=== PATIENT | female | born 1990 | race Caucasian/White ===

== ENCOUNTER 2017-03-05 09:42 | Inpatient (IN) | payer OTHER ==
[2017-03-05 10:44] LABS: ROM Internal QC QC Line Present
[2017-03-05] MEDS ORDERED: Dinoprostone* 10 MG VAG.SUPP VAGINAL ONE (12:04)
[2017-03-05 14:10] LABS: Hematocrit 36 % (35-47); Hemoglobin 11.5 g/dl (12.0-16.0); Mean Corpuscular HGB Conc 32 g/dl (31-36); Mean Corpuscular Hemoglobin 27 pg (27-31); Mean Corpuscular Volume 85 fL (80-97); Mean Platelet Volume 9 um3 (7.4-10.4); Red Blood Count 4.24 10^6/ul (4.0-5.4); Red Cell Distribution Width 15 % (10.5-15); White Blood Count 13.1 10^3/ul (3.5-10.8)
[2017-03-05] MEDS ORDERED: Oxytocin in LR* 20 UNITS/1,000 ML BAG IVPB ONE (19:33)
[2017-03-05] MEDS ORDERED: Oxytocin in LR* 20 UNITS/1,000 ML BAG IVPB SCH (20:00)
[2017-03-06] MEDS ORDERED: OBEPIDURAL* 250 ML ONE (00:06)
[2017-03-06] MEDS ORDERED: Sodium Citrate/Citric Acid* 15 ML UDC PO PRN (00:38)
[2017-03-06] MEDS ORDERED: Phenylephrine IV* 40 MCG/ML 10 ML SYRINGE IV PUSH PRN ×2 (00:38)
[2017-03-06] MEDS ORDERED: OBEPIDURAL* 250 ML EPIDURAL SCH (01:00)
[2017-03-06] MEDS ORDERED: Dibucaine 1% 28.35 GM TUBE ONE (05:06)
[2017-03-06] MEDS ORDERED: Witch Hazel PAD* JAR TOPICAL PRN (07:07)
[2017-03-06] MEDS ORDERED: Acetaminophen TAB* 325 MG PO PRN (07:07)
[2017-03-06] MEDS ORDERED: Dibucaine 1% 28.35 GM TUBE PR PRN (07:07)
[2017-03-06] MEDS ORDERED: Glycerin ADULT SUPP PR PRN (07:07)
[2017-03-06] MEDS ORDERED: Simethicone CHEW TAB* 80 MG PO SCH (08:30)
[2017-03-06] MEDS: Docusate CAP* 100 MG PO SCH ×3 (10:12→20:59)
[2017-03-06] MEDS: Buprenorphine TAB* 8 MG PO SCH (10:39)
[2017-03-06] MEDS: Ibuprofen TAB* 600 MG PO PRN ×2 (15:48→22:03)
[2017-03-07] MEDS: Ibuprofen TAB* 600 MG PO PRN ×3 (06:24→20:56)
[2017-03-07 07:28] LABS: Hematocrit 35 % (35-47); Hemoglobin 11.4 g/dl (12.0-16.0); Mean Corpuscular HGB Conc 32 g/dl (31-36); Mean Corpuscular Hemoglobin 28 pg (27-31); Mean Corpuscular Volume 85 fL (80-97); Mean Platelet Volume 9 um3 (7.4-10.4); Red Blood Count 4.13 10^6/ul (4.0-5.4); Red Cell Distribution Width 15 % (10.5-15)
[2017-03-07] MEDS ORDERED: Ferrous Gluconate TAB* 324 MG TAB PO SCH (09:00)
[2017-03-07] MEDS: Buprenorphine TAB* 8 MG PO SCH (09:23)
[2017-03-07] MEDS: Docusate CAP* 100 MG PO SCH ×3 (09:23→20:57)
[2017-03-08] MEDS: Ibuprofen TAB* 600 MG PO PRN ×2 (08:12→15:36)
[2017-03-08] MEDS: Docusate CAP* 100 MG PO SCH ×2 (08:12→15:36)
[2017-03-08] MEDS: Buprenorphine TAB* 8 MG PO SCH (08:13)
[2017-03-08 08:30] VITALS: BP 109/61
== END 2017-03-08 18:30 | disposition home or self-care (01) | DRG 560 ==
LOC: MCHOBOUT 09:42 → MCHOB 09:49 → MCHOBOUT 11:12 → MCHOB 03-06 09:37
PROVIDERS: ADMIT Obstetrics & Gynecology; ATTEND Obstetrics & Gynecology
PROC: 10E0XZZ Delivery of Products of Conception, External Approach (ICD-10-PCS; principal; 2017-03-06)
DX: O48.0 Post-term pregnancy (principal); F11.21 Opioid dependence, in remission; Z3A.41 41 weeks gestation of pregnancy; Z37.0 Single live birth
CPT/HCPCS: 36415; 84112; 85025; 86850; 86900; 86901; A9270-GY

== ENCOUNTER 2019-01-12 22:35 | Observation (INO) | payer OTHER ==
[2019-01-12 23:14] LABS: ABS Basophils 0.1 10^3/ul (0-0.2); ABS Eosinophils 0.1 10^3/ul (0-0.6); ABS Lymphocytes 2.8 10^3/ul (1.0-4.8); ABS Monocytes 0.7 10^3/ul (0-0.8); ABS Neutrophils 6.3 10^3/ul (1.5-7.7); ABS Nucleated RBC 0 10^3/ul; Eosinophil % 0.8 %; Hematocrit 32 % (33-41); Hemoglobin 10.3 g/dL (12.0-16.0); Lymphocyte % 27.9 %; Mean Corpuscular HGB Conc 33 g/dL (31-36); Mean Corpuscular Hemoglobin 27 pg (27-31); Mean Corpuscular Volume 84 fL (80-97); Mean Platelet Volume 6.9 fL (7.4-10.4); Nucleated Red Blood Cells % 0; Platelet Count 317 10^3/uL (150-450); Red Blood Count 3.77 10^6 /uL (3.70-4.87); Red Cell Distribution Width 15 % (10.5-15); White Blood Count 9.9 10^3/uL (3.5-10.8)
[2019-01-12 23:30] LABS: Albumin 4.2 g/dL (3.2-5.2); Albumin/Globulin Ratio 1.8 (1-3); C Reactive Protein 5.17 mg/L (<8.01); Calcium 8.7 mg/dL (8.6-10.3); EGFR African American 141.3 (>60); EGFR Non-African American 116.8 (>60); Globulin 2.4 g/dL (2-4); Potassium 3.5 mmol/L (3.5-5.0); Total Bilirubin 0.2 mg/dL (0.2-1.0); Total Protein 6.6 g/dL (6.4-8.9)
[2019-01-13] MEDS ORDERED: NS 0.9% 1000 ML** 1,000 ML IV ONE (01:07)
--- NOTE | 2019-01-13 01:24 | ED ---
- HPI Summary HPI Summary: 28 year old female presents with vaginal bleeding today for the past 3 hours. She had confirmed intrauterine 2 weeks ago at [facility] and was given a pill for medical and then suppositories for the next 5 days. She states that she had some bleeding after taking the medications and passed some clots so thought that the miscarriage was over. [facility] she is suppose to follow [facility] on monday. She states she had no bleeding in between for the past week and a half. She had no pain until today. She states she is going to through three pairs of pants. She states she is very dizzy when she stands up. she admits to palpitations. She states the bleeding has not slowed. she states she is having cramping lower abdominal pain. - History of Current Complaint Chief Complaint: EDVaginalBleeding Stated Complaint: IM BLEEDING REALLY BAD PER PT Time Seen by Provider: 01/13/19 01:07 Pain Intensity: 2 - Assessment SAB: 0 IEA: 2 - Additional Pertinent History Maternal Blood Type and Rh: O Positive - Allergies/Home Medications Allergies/Adverse Reactions: Allergies Allergy/AdvReac Type Severity Reaction Status Date / Time No Known Allergies Allergy Verified 06/23/16 21:11 PMH/Surg Hx/FS Hx/Imm Hx Endocrine/Hematology History: Denies: Hx Anticoagulant Therapy Respiratory History: Denies: Hx Asthma Infectious Disease History: No Infectious Disease History: Denies: Traveled Outside the [place] in Last 30 Days - Family History Known Family History: Positive: Diabetes - Social History Alcohol Use: None Substance Use Type: Reports: None Substance Use Comment - Amount & Last Used: Hx of heroin use, 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 Active with [facility]. Hx Tobacco Use: Yes Smoking Status (MU): Current Every Day Smoker Type: Cigarettes Amount Used/How Often: 1/2 pack daily Review of Systems Negative: Fever Negative: Chest Pain Negative: Shortness Of Breath Positive: Other - vaginal bleeding All Other Systems Reviewed And Are Negative: Yes Physical Exam - Physical Exam Triage Information Reviewed: Yes Vital Signs Reviewed: Yes Appearance: Positive: Well-Appearing Skin: Positive: Warm, Dry Head/Face: Positive: Normal Head/Face Inspection Eyes: Positive: Normal, Conjunctiva Clear ENT: Positive: Pharynx normal Respiratory/Lung Sounds: Positive: Clear to Auscultation, Breath Sounds Present Cardiovascular: Positive: Normal, RRR Abdomen Description: Positive: Soft, Other: - tenderness pelvic area Bowel Sounds: Positive: Present Pelvic Exam: Blood - clots and active bleeding, Other - cervical os open Musculoskeletal: Positive: Normal Neurological: Positive: Normal Psychiatric: Positive: Normal Diagnostics - Vital Signs Vital Signs Temp Pulse Resp BP Pulse Ox 01/13/19 01:08 105 17 127/71 100 01/13/19 01:00 102 100 01/13/19 00:38 95 143/83 100 01/13/19 00:37 93 100 01/12/19 22:36 98.1 F 113 18 131/84 99 - Laboratory Lab Results: Lab Results 01/12/19 01/12/19 01/12/19 Range/Units 23:04 23:04 23:04 WBC 9.9 (3.5-10.8) 10^3/uL RBC 3.77 (3.70-4.87) 10^6 /uL Hgb 10.3 L (12.0-16.0) g/dL Hct 32 L (33-41) % MCV 84 (80-97) fL MCH 27 (27-31) pg MCHC 33 (31-36) g/dL RDW 15 (10.5-15) % Plt Count 317 (150-450) 10^3/uL MPV 6.9 L (7.4-10.4) fL Neut % (Auto) 63.5 % Lymph % (Auto) 27.9 % Amador % (Auto) 7.2 % Eos % (Auto) 0.8 % Baso % (Auto) 0.6 % Absolute Neuts (auto) 6.3 (1.5-7.7) 10^3/ul Absolute Lymphs (auto) 2.8 (1.0-4.8) 10^3/ul Absolute Monos (auto) 0.7 (0-0.8) 10^3/ul Absolute Eos (auto) 0.1 (0-0.6) 10^3/ul Absolute Basos (auto) 0.1 (0-0.2) 10^3/ul Absolute Nucleated RBC 0 10^3/ul Nucleated RBC % 0 Sodium 138 (135-145) mmol/L Potassium 3.5 (3.5-5.0) mmol/L Chloride 107 (101-111) mmol/L Carbon Dioxide 25 (22-32) mmol/L Anion Gap 6 (2-11) mmol/L BUN 11 (6-24) mg/dL Creatinine 0.61 (0.51-0.95) mg/dL Est GFR ( Amer) 141.3 (>60) Est GFR (Non-Af Amer) 116.8 (>60) BUN/Creatinine Ratio 18.0 (8-20) Glucose 107 H (70-100) mg/dL Calcium 8.7 (8.6-10.3) mg/dL Total Bilirubin 0.20 (0.2-1.0) mg/dL AST 13 (13-39) U/L ALT 7 (7-52) U/L Alkaline Phosphatase 57 (34-104) U/L C-Reactive Protein 5.17 (<8.01) mg/L Total Protein 6.6 (6.4-8.9) g/dL Albumin 4.2 (3.2-5.2) g/dL Globulin 2.4 (2-4) g/dL Albumin/Globulin Ratio 1.8 (1-3) Beta HCG, Quant 02286.00 mIU/mL Blood Type O Positive Antibody Screen Negative Result Diagrams: 01/13/19 02:49 01/12/19 23:04 Lab Statement: Any lab studies that have been ordered have been reviewed, and results considered in the medical decision making process. Re-Evaluation - Re-Evaluation First Eval Re-Evaluation Time: 02:48 Comment: bp is 88/44. patient passed out Second Eval Re-Evaluation Time: 03:00 Comment: hemoglobin has dropped to 8, patient feels a little bit better, signed transfusion form Course/Dx - Course Course Of Treatment: 28 year old female presents with vaginal bleeding today for the past 3 hours. She had confirmed intrauterine [facility] weeks ago at [facility] and was given a pill for medical and then suppositories for the next 5 days. She states that she had some bleeding after taking the medications and passed some clots so thought that the miscarriage was over. [facility] she is suppose to follow [facility] on monday. She states she had no bleeding in between for the past week and a half. She had no pain until today. She states she is going to through three pairs of pants. She states she is very dizzy when she stands up. she admits to palpitations. She states the bleeding has not slowed. she states she is having cramping lower abdominal pain. on exam mild pelvic tenderness. spoke with dr mendez who says to call ob. spoke with dr hartmann and she said to go a pelvic and look for a sac. did a pelvic large amount of clots and actively bleeding present. removed all the clots and bleeding with sunction and removed a large amount of blood. cervical os open. no sac seen. patient went to the bathroom and ended up having a syncopal episodes. is continuing to bleed. hcg dropped to [address] brenner and says to get an ultrasound. dr mendez says we will need to transfuse so ordered two units. patient will be signed out to dr mendez for disposition - Differential Diagnosis/HQI/PQRI: Incomplete , Spontaneous , Intrauterine - Diagnoses Provider Diagnoses: Incomplete Discharge - Sign-Out/Discharge Documenting (check all that apply): Sign-Out Patient Signing out patient TO: Toan Mendez - Discharge Plan Referrals: Carolyn Ryder MD [Primary Care Provider] -
[2019-01-13] MEDS ORDERED: NS 0.9% 1000 ML** 2,000 ML IV ONE (02:47)
[2019-01-13 02:55] LABS: ABS Basophils 0.1 10^3/ul (0-0.2); ABS Eosinophils 0 10^3/ul (0-0.6); ABS Lymphocytes 3.4 10^3/ul (1.0-4.8); ABS Monocytes 1.1 10^3/ul (0-0.8); ABS Neutrophils 12.1 10^3/ul (1.5-7.7); ABS Nucleated RBC 0 10^3/ul; Eosinophil % 0.2 %; Hematocrit 25 % (33-41); Lymphocyte % 20.4 %; Mean Corpuscular HGB Conc 32 g/dL (31-36); Mean Corpuscular Hemoglobin 27 pg (27-31); Mean Corpuscular Volume 84 fL (80-97); Mean Platelet Volume 7.1 fL (7.4-10.4); Nucleated Red Blood Cells % 0; Platelet Count 297 10^3/uL (150-450); Red Blood Count 2.92 10^6 /uL (3.70-4.87); Red Cell Distribution Width 15 % (10.5-15); White Blood Count 16.7 10^3/uL (3.5-10.8)
--- NOTE | 2019-01-13 03:12 | ED ---
Progress - Progress Note Progress Note: This patient was signed out from BRYNN Ricketts, pending dispo. This patient is actively bleeding in the ER and is hypotensive. Consulted Dr. Saavedra (OB) at 0305 and requested that she personally evaluate the patient in the ER. Spoke with Dr. Saavedra in the ED and the patient will be admitted with dx of incomplete . Patient understands and agrees with this plan. Re-Evaluation - Re-Evaluation First Eval Re-Evaluation Time: 02:48 Comment: bp is 88/44. patient passed out Second Eval Re-Evaluation Time: 03:00 Comment: hemoglobin has dropped to 8, patient feels a little bit better, signed transfusion form Course/Dx - Course Course Of Treatment: This patient was signed out from BRYNN Ricketts, pending dispo. This patient is actively bleeding in the ER and is hypotensive. Consulted Dr. Saavedra (OB) at 0305 and requested that she personally evaluate the patient in the ER. Spoke with Dr. Saavedra in the ED and the patient will be admitted with dx of incomplete . Patient understands and agrees with this plan. - Diagnoses Provider Diagnoses: Incomplete - Provider Notifications Discussed Care Of Patient With: Raissa Saavedra Time Discussed With Above Provider: 03:05 Instructed by Provider To: Will See In ED - Critical Care Time Critical Care Time: 30-74 min - 60 minutes Discharge - Sign-Out/Discharge Documenting (check all that apply): Patient Departure - admit Patient Received Moderate/Deep Sedation with Procedure: No - Discharge Plan Condition: Stable Disposition: ADMITTED TO [facility] Referrals: Carolyn Ryder MD [Primary Care Provider] - - Billing Disposition and Condition Condition: STABLE Disposition: Admitted to [facility] - Attestation Statements Document Initiated by Scribe: Yes Documenting Scribe: Derrick Du Provider For Whom Alex is Documenting (Include Credential): Toan Cook MD Scribe Attestation: Derrick Rendon, scribed for Toan Cook MD on 01/13/19 at 0427. Scribe Documentation Reviewed: Yes Provider Attestation: The documentation as recorded by the Derrick mendoza accurately reflects the service I personally performed and the decisions made by Toan rothman MD Status of Scribe Document: Viewed
[2019-01-13] MEDS ORDERED: Lidocaine 1% INJ* 10 MG/ML 30 ML SDV ONE (04:49)
[2019-01-13] MEDS ORDERED: Midazolam* 1 MG/ML 5 ML VIAL (5 MG) ONE (04:52)
[2019-01-13] MEDS ORDERED: Ondansetron INJ* 2 MG/ML VIAL ONE (04:57)
[2019-01-13] MEDS ORDERED: Propofol* 10 MG/ML 20 ML BTL ONE (04:57)
[2019-01-13] MEDS ORDERED: Ketorolac INJ* 30 MG/ML 1 ML VIAL ONE (04:57)
[2019-01-13] MEDS ORDERED: Midazolam* 1 MG/ML 2 ML VIAL (2 MG) ONE (05:05)
[2019-01-13] MEDS ORDERED: ceFOXitin(*) 1 GM VIAL ONE (05:09)
[2019-01-13] MEDS ORDERED: Misoprostol TAB* 200 MCG ONE (05:17)
[2019-01-13] MEDS ORDERED: Naloxone* 0.4 MG/ML 1 ML VIAL IV PRN (05:31)
[2019-01-13] MEDS ORDERED: Lactated Ringers 1000 ML Bag* 1,000 ML IV SCH (06:45)
[2019-01-13 08:15] LABS: ABS Basophils 0 10^3/ul (0-0.2); ABS Eosinophils 0 10^3/ul (0-0.6); ABS Lymphocytes 1.4 10^3/ul (1.0-4.8); ABS Monocytes 0.5 10^3/ul (0-0.8); ABS Neutrophils 7.8 10^3/ul (1.5-7.7); ABS Nucleated RBC 0 10^3/ul; Eosinophil % 0.1 %; Hematocrit 23 % (33-41); Hemoglobin 7.5 g/dL (12.0-16.0); Lymphocyte % 14.1 %; Mean Corpuscular HGB Conc 33 g/dL (31-36); Mean Corpuscular Hemoglobin 28 pg (27-31); Mean Corpuscular Volume 84 fL (80-97); Mean Platelet Volume 7.1 fL (7.4-10.4); Nucleated Red Blood Cells % 0; Platelet Count 197 10^3/uL (150-450); Red Blood Count 2.69 10^6 /uL (3.70-4.87); Red Cell Distribution Width 14 % (10.5-15); White Blood Count 9.6 10^3/uL (3.5-10.8)
[2019-01-13] MEDS ORDERED: Ibuprofen TAB* 600 MG PO SCH ×2 (10:00→11:00)
[2019-01-13 12:24] VITALS: BP 102/39
--- NOTE | 2019-01-13 14:11 | OP ---
OPERATIVE REPORT: DATE OF OPERATION: 01/13/19 DATE OF : 89 SURGEON: Raissa Saavedra MD ORTHOPEDIC SHOE FITTER: None. ANESTHESIA: Sedation with a paracervical block PRE-OP DIAGNOSIS: Incomplete POST-OP DIAGNOSIS: Incomplete OPERATIVE PROCEDURE: Dilation, evacuation and curettage. ESTIMATED BLOOD LOSS: Less than 100 cc. URINE OUTPUT: 100 cc. IV FLUIDS: One unit of packed red blood cells and 500 cc of crystalloid. FINDINGS: Revealed copious clot and intrauterine contents that were consistent with products of conc eption. COMPLICATION: None apparent. DISPOSITION: Stable to recovery room. DESCRIPTION OF PROCEDURE: The patient was placed in dorsal lithotomy position. The perineum and vagi na were prepped and draped in sterile standard fashion. Legs for this procedure were placed in candy cane stirrups. After identifying the patient with the universal protocol for correct procedure, pat ient and position, self-cath was placed for drainage of clear yellow urine. Self-cath was then remov ed. A sterile speculum was then inserted in to the vagina. The cervix was visualized. A paracervic al block was then carried out using 1% lidocaine 10 cc. A single-tooth tenaculum was placed on the a nterior lip of the cervix and the cervix was then dilated to a number 9 Hegar dilator. An 8 mm curve d suction curette was then placed for complete evacuation of the intrauterine content. Sharp curetta ge was then performed confirming complete evacuation of the uterine cavity. Single- tooth tenaculum was removed. An 800 mcg of Cytotec was placed transvaginally and speculum was removed. All sponge, instrument, and blade counts were correct throughout the case. The patient tolerated the procedure w ell and went to recovery room in stable condition. [id number]/[facility] #: [id number]
== END 2019-01-13 13:00 | disposition home or self-care (01) ==
LOC: ED 22:35 → OR 01-13 04:43 → SSU 01-13 06:20
PROVIDERS: ADMIT Obstetrics & Gynecology; ATTEND Obstetrics & Gynecology
DX: O03.4 Incomplete spontaneous abortion without complication (principal); O03.1 Delayed or excessive hemorrhage following incomplete spontaneous abortion; R42 Dizziness and giddiness; F17.210 Nicotine dependence, cigarettes, uncomplicated
CPT/HCPCS: 36415; 76815; 80053; 84702; 85025; 86140; 86850; 86900; 86901; 86922; 96361; 96374; 96375; 99284; A9270-GY; G0378; J0694; J1885; J2250; J2405; J2704; P9040